=== PATIENT | male | born 1980 | race American Indian/Alaskan Native ===

== ENCOUNTER 2023-02-26 09:59 | Day surgery (SDC) | payer OTHER ==
--- NOTE | 2023-02-26 08:44 | HP ---
AMENDED REPORT: DATE OF SURGERY: 02/26/2023 HISTORY OF PRESENT ILLNESS: The patient is a 42-year-old with dysphagia intermittent for a few years worse over Thanksgiving mainly mid to lower esophagus. No prior upper endoscopy. Family history negative for esophageal cancer. PAST MEDICAL HISTORY: Dysphagia, hypertension. PAST SURGICAL HISTORY: No reported surgeries in the past. MEDICATIONS: Prilosec, losartan. ALLERGIES: NKDA. FAMILY HISTORY: Hypertension. Negative for esophageal cancer. SOCIAL HISTORY: No smoking. Occasional alcohol use. REVIEW OF SYSTEMS: Twelve systems reviewed. No chest pain or palpitations. Other systems negative or noncontributory as above and per preadmission questionnaire. PHYSICAL EXAMINATION: Height 6 feet 2 inches. BMI 22.75. GENERAL: No acute distress. HEENT: Sclerae nonicteric. EOMI. Oral mucous membranes moist. NECK: No JVD. CHEST: Equal excursion, nonlabored breathing. CVS: Regular rate and rhythm. ABDOMEN: Soft. No peritoneal signs. EXTREMITIES: No significant edema. NEURO: Alert, oriented, moving extremities symmetrically. RECTAL: Deferred timed to endoscopy exam. PSYCH: Appropriate mood and affect. SKIN: Dry. IMPRESSION: Dysphagia, need for EGD possible biopsy possible dilatation. He was shown the risk sheet explained the procedure in detail including but not limited to bleeding or infection, risk of possible perforation possibly requiring open procedure, possibility of no improvement in swallowing possibly requiring other procedures, dilation or referral, possible no narrowing to dilate or possible neurologic or functional problem that dilatation would not benefit. If dilatation is performed and improves swallowing might need repeated again down the road. Remote risk of needing a different type of dilator in a different setting. The patient agrees to proceed. Will proceed with EGD possible biopsy possible dilatation as an outpatient under MAC anesthesia. Otherwise continue medication for hypertension.
[2023-02-26 10:20] VITALS: RESP 18; O2SAT 98
[2023-02-26] MEDS ORDERED: Lactated Ringers 1,000 ML IV SCH (10:30)
[2023-02-26] MEDS ORDERED: Xylocaine-Mpf 2% 5 Ml Vial ONE (12:12)
[2023-02-26] MEDS ORDERED: Versed 2 MG/2 ML Injection ONE (12:12)
[2023-02-26] MEDS ORDERED: DIPRIVAN 200 MG/20 ML IV ONE (12:12)
[2023-02-26 12:57] VITALS: TEMP 97.6
[2023-02-26 13:11] VITALS: BP 139/94; PULSE 70
--- NOTE | 2023-02-26 14:50 | OP ---
SURGERY DATE/TIME: 02/26/2023 1216 PREOPERATIVE DIAGNOSIS: Dysphagia in lower esophagus. POSTOPERATIVE DIAGNOSES: 1) Minimal to mild gastric erythema versus early gastritis, path pending. 2) Small gastric polyp. 3) Distal esophageal narrowing and spasm requiring dilatation. PROCEDURES: 1) EGD with cold biopsy to antrum to evaluate for Helicobacter pylori. 2) Cold biopsy gastric polyp. 3) Cold biopsy distal esophagus to evaluate for early inflammation. 4) Cold biopsy mid esophagus to evaluate for eosinophilic esophagitis. 5) Distal esophageal dilatation (size 20 balloon). SURGEON: Dr. Taz Sanchez. ANESTHESIA: MAC. ESTIMATED BLOOD LOSS: Minimal. INDICATIONS: As noted above. Risks and benefits explained in detail and not limited to and consent was obtained. DESCRIPTION OF PROCEDURE AND FINDINGS: The patient is taken to the endoscopy room. MAC anesthesia introduced. After official time out and no disagreement with planned procedure, bite block positioned. Video gastroscope easily passed down the oropharynx, proximal esophagus down to distal esophagus where he had some spasm and a little bit of narrowing. There was no christa mass to biopsy. As he has symptoms in this area, it was felt he warranted dilatation during the procedure. The scope was able to be passed through here around through the junction to the third and fourth portion of the duodenum. Duodenum grossly unremarkable. The scope pulled back into the stomach. He had some gastric erythema and possible minimal to mild early gastritis versus gastropathy. Cold biopsy is taken to evaluate for Helicobacter pylori. He also had a gastric polyp. Cold biopsy is taken and this appeared to be a benign fundal gland-type polyp. On retroflex, the gastroesophageal junction is snug against the scope. No signs or any hiatal hernia. The scope is pulled back. The gastroesophageal junction at about 42 cm. There was mild erythema. Again, there was some esophageal narrowing and spasm in this area and as he is having symptoms I felt this warranted dilatation. Random cold biopsies taken distal esophagus as well as mid esophagus to evaluate for eosinophilic esophagitis. The scope was then passed back down in the stomach and a 20 balloon catheter carefully inserted. It was then pulled up to the distal esophageal narrowing and spasm where it was carefully inflated first stage for 15 to 30 seconds, second stage for 20 to 30 seconds, final stage for 2 minutes size 20 balloon dilator. Balloon was then decompressed. Balloon catheter withdrawn. The scope much more easily passed through this area. There was no evidence of any full thickness issues or injury secondary to dilatation. The scope is withdrawn. The patient tolerated the procedure well. Findings discussed with the family out in the waiting area.
== END 2023-02-26 13:15 | disposition home or self-care (01) ==
LOC: SDC 09:59
PROVIDERS: ATTEND Surgery
DX: K29.70 Gastritis, unspecified, without bleeding (principal); R13.10 Dysphagia, unspecified; K31.7 Polyp of stomach and duodenum; K22.2 Esophageal obstruction
CPT/HCPCS: C1726; J2250; J2704